=== PATIENT | female | born 1965 | race Caucasian/White ===

== ENCOUNTER 2019-03-17 20:35 | Observation (INO) | payer BC ==
[~2019-03-17] VITALS: Ht 160 cm; Wt 85.1 kg
--- NOTE | 2019-03-17 20:40 | PHYS DOC ---
Past History Past Medical History: Hypertension, Other Past Medical History Night terrors Adult General Chief Complaint Chief Complaint: ".. I was exposed to Flu... and I have to fly out to [place] for a medical conference.. so I stopped by urgent care to get some tamiflu... but my BP was in 200's/ 100's.. and every one freaked.. but I am not feeling right.. I normally have good blood pressures.. " HPI HPI Patient is a 53 year old female who presents with above hx and complaints of hypertension. Patient has not been on blood pressure meds previously. Patient does have a high stress job. Patient is normally very healthy. Travel f requently. Patient has recently had exposure to influenza. Patient does report some general malaise and fatigue. Review of Systems Review of Systems Constitutional: Denies fever or chills [] Eyes: Denies change in visual acuity, redness, or eye pain [] HENT: Denies nasal congestion or sore throat [] Respiratory: Denies cough or shortness of breath [] Cardiovascular: No additional information not addressed in HPI [] GI: Denies abdominal pain, nausea, vomiting, bloody stools or diarrhea [] : Denies dysuria or hematuria [] Musculoskeletal: Denies back pain or joint pain [] Integument: Denies rash or skin lesions [] Neurologic: Denies headache, focal weakness or sensory changes [] Endocrine: Denies polyuria or polydipsia [] All other systems were reviewed and found to be within normal limits, except as documented in this note. Family History Family History DVT or family members Current Medications Current Medications See nursing for home meds Allergies Allergies Allergic to penicillin Physical Exam Physical Exam Constitutional: Well developed, well nourished, mild distress, non-toxic appearance. [] HENT: Normocephalic, atraumatic, bilateral external ears normal, oropharynx moist, no oral exudates, nose normal. [] Eyes: PERRLA, EOMI, conjunctiva normal, no discharge. [] Neck: Normal range of motion, no tenderness, supple, no stridor. [] Cardiovascular:Heart rate regular rhythm, no murmur [] Lungs & Thorax: Bilateral breath sounds equal at apexes auscultation [] Abdomen: Bowel sounds normal, soft, no tenderness, no masses, no pulsatile masses. [] Skin: Warm, dry, no erythema, no rash. [] Back: No tenderness, no CVA tenderness. [] Extremities: No tenderness, no cyanosis, no clubbing, ROM intact, no edema. [] No cording appreciated Neurologic: Alert and oriented X 3, normal motor function, normal sensory function, no focal deficits noted. [] Psychologic: Affect anxious, judgement normal, mood normal. [] EKG EKG My interpretation EKG shows a sinus rhythm at 82 bpm. No findings acute STEMI of contralateral changes.[] Radiology/Procedures Radiology/Procedures [][address] [address] IMAGING REPORT Signed PATIENT: DILIP MATIAS ACCOUNT: [id number] : 1965 LOCATION: ER AGE: 53 SEX: F EXAM STATUS: PRE ER ORD. PHYSICIAN: HELLEN NEGRETE MD REASON: HTN, WEAKNESS, LEFT ARM NUMB. PROCEDURE: CHEST PA & LATERAL EXAM: PA and Lateral Views of the Chest DATE: 03/17/2019 8:43 PM INDICATION: COMPARISON: No Prior FINDINGS: The heart is not enlarged. Mediastinal and hilar contours are normal. No focal parenchymal airspace opacity. No pleural effusion or pneumothorax. IMPRESSION: 1. No radiographic evidence for acute cardiopulmonary process. Electronically signed by: Cy Lanza MD (03/17/2019 9:50 PM) [id number] DICTATED AND SIGNED BY: CY LANZA MD DATE: 03/17/19 2150 CC: HELLEN NEGRETE MD ~ Course & Med Decision Making Course & Med Decision Making Pertinent Labs and Imaging studies reviewed. (See chart for details) Admit to Dr. Perez with cardiology consult. Heart Score -2 to 3 Impression: 1. Accelerated Hypertension 2. Hx. Flu exposure 3. Insomnia- Night terrors 4. Anemia Hgb 11.3 5. Atypical Chest Pain [] Dragon Disclaimer Dragon Disclaimer This electronic medical record was generated, in whole or in part, using a voice recognition dictation system. Departure Departure: Disposition: HOME/RESIDENCE PRIOR TO ADM Condition: STABLE Dragon Disclaimer This chart was dictated in whole or in part using Voice Recognition software in a busy, high-work load, and often noisy Emergency Department environment. It may contain unintended and wholly unrecognized errors or omissions. HELLEN NEGRETE MD Mar 17, 2019 20:40
[2019-03-17] MEDS ORDERED: IV RINGERS SOLUTION,LACTATED 1,000 ML IV SCH (20:43)
[2019-03-17 21:33] LABS: BARBITURATES NEG (NEG); BENZODIAZEPINES POS (NEG); CANNABINOIDS NEG (NEG); COCAINE NEG (NEG); METHADONE NEG (NEG); OPIATES NEG (NEG); PHENCYCLIDINE NEG (NEG)
[2019-03-17 21:40] LABS: AMPHETAMINE/METHAMPHETAMINE NEG (NEG)
[2019-03-17 21:43] LABS: BILIRUBIN,URINE NEG (NEG); CLARITY,URINE HAZY; COLOR,URINE YELLOW; GLUCOSE,URINE NEG (NEG); NITRITE,URINE NEG (NEG); RBC,URINE RARE /HPF (0-2); UROBILINOGEN,URINE 0.2 mg/dL (0.2 mg/dL); WBC,URINE RARE /HPF (0-4)
[2019-03-17 21:44] LABS: BACTERIA,URINE FEW /HPF (0-FEW); SQUAMOUS EPITHELIAL CELL,UR OCC /LPF
--- NOTE | 2019-03-17 21:53 | RAD ---
EXAM: PA and Lateral Views of the Chest DATE: 03/17/2019 8:43 PM INDICATION: COMPARISON: No Prior FINDINGS: The heart is not enlarged. Mediastinal and hilar contours are normal. No focal parenchymal airspace opacity. No pleural effusion or pneumothorax. IMPRESSION: 1. No radiographic evidence for acute cardiopulmonary process. Electronically signed by: Cy Beck MD (03/17/2019 9:50 PM) [id number]
[2019-03-17 22:06] LABS: BASO % 1 % (0-3); EOS # 0.1 x10^3/uL (0.0-0.7); EOS % 2 % (0-3); HEMATOCRIT 36.3 % (36.0-47.0); HEMOGLOBIN 11.3 g/dL (12.0-15.5); LYMPH # 1.7 x10^3/uL (1.0-4.8); LYMPH % 28 % (24-48); MEAN CORPUSCULAR HEMOGLOBIN 24 pg (25-35); MEAN CORPUSCULAR HGB CONC 31 g/dL (31-37); MEAN CORPUSCULAR VOLUME 78 fL (79-100); MONO # 0.6 x10^3/uL (0.0-1.1); MONO % 10 % (0-9); NEUT # 3.6 x10^3uL (1.8-7.7); NEUT % 60 % (31-73); PLATELET COUNT 373 x10^3/uL (140-400); RED BLOOD COUNT 4.68 x10^6/uL (3.50-5.40); RED CELL DISTRIBUTION WIDTH 17.8 % (11.5-14.5)
[2019-03-17 22:14] LABS: CALCIUM 8.5 mg/dL (8.5-10.1); CREATININE 0.6 mg/dL (0.6-1.0); POTASSIUM 3.5 mmol/L (3.5-5.1)
[2019-03-17 22:29] LABS: ALBUMIN 3.9 g/dL (3.4-5.0); DIRECT BILIRUBIN 0.1 mg/dL (0.0-0.2); TOTAL BILIRUBIN 0.5 mg/dL (0.2-1.0); TOTAL PROTEIN 7.1 g/dL (6.4-8.2)
[2019-03-17] MEDS ORDERED: cloNIDine HCL 0.1 MG TABLET PO ONE (22:30)
[2019-03-17] MEDS ORDERED: cloNIDine TTS-1 1 PATCH PATCH TD SCH (22:30)
[2019-03-18] VITALS (11 sets, daily range): BP systolic 103–130; BP diastolic 69–90
[2019-03-18] MEDS ORDERED: ONDANSETRON PF 4 MG/2 ML VIAL. IV PRN (01:00)
[2019-03-18] MEDS ORDERED: LORazepam 1 MG TABLET PO ONE (01:30)
[2019-03-18] MEDS ORDERED: cloNIDine TTS-2 1 PATCH PATCH TD ONE (01:30)
[2019-03-18] MEDS ORDERED: OSELTAMIVIR 75 MG CAPSULE PO ONE (01:30)
[2019-03-18] MEDS ORDERED: ASPIRIN 325 MG TABLET PO ONE (01:30)
--- NOTE | 2019-03-18 03:04 | EKG ---
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
[2019-03-18 03:43] LABS: INFLUENZA A PATIENT NEGATIVE (NEGATIVE); INFLUENZA B PATIENT NEGATIVE (NEGATIVE)
[2019-03-18] MEDS ORDERED: MELO7.5T29 PO (04:48)
[2019-03-18] MEDS ORDERED: ESCITALOPRAM OXA5 MG PO (04:48)
[2019-03-18] MEDS ORDERED: ALPR0.25 PO (04:48)
[2019-03-18] MEDS ORDERED: PANT40TA5 PO (04:48)
--- NOTE | 2019-03-18 08:10 | PDOC2 ---
CAROLANN MURRELL COAT FELLER 03/18/19 0810: CARDIAC CONSULT DATE OF CONSULT Date Of Consult DATE: 03/18/19 TIME: 08:08 REASON FOR CONSULT Reason for Consult Accelerated HTN Atypical CP REFERRING PHYSICIAN Referring Physician Dr. Roblero SOURCE Source: Chart review, Patient HPI History of Present Illness This is a 53 yo female who presented secondary to elevated blood pressure. Patient was exposed to the flu recently. Is traveling to [place] this for work. Went to urgent care for prophylaxis Tamiflu. Blood pressure was significantly elevated near 200/100 and she was referred to the ED for further evaluation and treatment. She reports blood pressure is normally 120/80 at routine visits at her PCP every 3 months. Does report that parents began having heart difficulties in their 50's. Patient reports she woke up with a headache Sunday morning. Wasn't overly concerned as she had been up late and had a few drinks with the [employer] game. Later in the morning, was feeling dizzy. Also noted numbness in her left arm and leg. Dizziness persisted and started feeling flush. Thought she was coming down with the flu. Does report experiencing LE edema for the last year. Does seem to improve overnight. States she has been extremely fatigue recently. Has very demanding job and travels frequently. Often eats airport food. Has long flight of stairs at home and is very dyspneic when she goes up them. Occasionally experiences tightness in her central chest. Has family h/o CAD. Both parents with CHF and diabetes. Dad with multiple stents. PAST MEDICAL HISTORY GI: GERD Psych: Anxiety PAST SURGICAL HISTORY Past Surgical History: Tonsillectomy, Other (breast augmentation ) FAMILY HISTORY Family History: Cancer, Coronary Artery Disease (father ), Diabetes, Heart Disease SOCIAL HISTORY Smoke: No ALCOHOL: none Drugs: None Lives: with Family CURRENT MEDICATIONS Current Medications Current Medications Lactated Ringer's 1,000 ml @ 100 mls/hr Q10H IV Last administered on 03/17/19at 22:00; Start 03/17/19 at 20:43; Stop 03/18/19 at 06:42; Status DC Clonidine HCl (Catapres) 0.2 mg 1X ONCE PO Last administered on 03/17/19at 22:34; Start 03/17/19 at 22:30; Stop 03/17/19 at 22:31; Status DC Clonidine HCl (Catapres Tts-1) 1 patch WEEKLY TD Last administered on 03/17/19at 23:33; Start 03/17/19 at 22:30 Oseltamivir Phosphate (Tamiflu) 75 mg 1X ONCE PO Last administered on 03/18/19at 01:56; Start 03/18/19 at 01:30; Stop 03/18/19 at 01:31; Status DC Ondansetron HCl (Zofran) 4 mg PRN Q4HRS PRN IV NAUSEA/VOMITING; Start 03/18/19 at 01:00; Stop 03/19/19 at 00:59 Aspirin (Brooke Aspirin) 325 mg 1X ONCE PO Last administered on 03/18/19at 01:55; Start 03/18/19 at 01:30; Stop 03/18/19 at 01:31; Status DC Aspirin (Children'S Aspirin) 81 mg DAILY PO ; Start 03/18/19 at 09:00 Clonidine HCl (Catapres Tts-2) 1 patch 1X ONCE TD ; Start 03/18/19 at 01:30; Stop 03/18/19 at 01:31; Status DC Lorazepam (Ativan) 1 mg 1X ONCE PO Last administered on 03/18/19at 01:56; Start 03/18/19 at 01:30; Stop 03/18/19 at 01:31; Status DC Active Scripts Active Reported Pantoprazole Sodium 40 Mg Tablet.dr 1 Tab-Cap PO DAILY Meloxicam 7.5 Mg Tablet 1 Tab PO DAILY 30 Days Escitalopram Oxalate 5 Mg Tablet 5 Mg PO DAILY Xanax (Alprazolam) 0.25 Mg Tablet 1 Tab PO DAILY ALLERGIES Allergies: Coded Allergies: Penicillins (Verified Allergy, Mild, Nausea and Vomiting, 03/17/19) ROS Review of Systems 14 point ROS conducted with pertinent positives noted above in HPI PHYSICAL EXAM General: Alert, Oriented X3, Cooperative, No acute distress HEENT: Atraumatic, Mucous membr. moist/pink Lungs: Clear to auscultation Heart: Regular rate, Normal S1, Normal S2, No murmurs Abdomen: Soft, No tenderness Extremities: No edema, Normal pulses Skin: No breakdown Neuro: Normal speech, Sensation intact Psych/Mental Status: Mental status NL, Other (anxious ) MUSCULOSKELETAL: No joint tenderness VITALS Vital Signs Vital Signs Date Time Temp Pulse Resp B/P (MAP) Pulse Ox O2 Delivery O2 Flow Rate FiO2 03/18/19 06:05 97.3 93 20 113/75 (88) 97 Room Air LABS LABS Laboratory Tests Test 03/17/19 20:40 03/17/19 21:25 03/18/19 02:40 Urine Collection Type Unknown Urine Color Yellow Urine Clarity Hazy Urine pH 6.5 Urine Specific Floyd >=1.030 Urine Protein Neg (NEG-TRACE) Urine Glucose (UA) Neg mg/dL (NEG) Urine Ketones (Stick) 15 mg/dL (NEG) Urine Blood Neg (NEG) Urine Nitrite Neg (NEG) Urine Bilirubin Neg (NEG) Urine Urobilinogen Dipstick 0.2 mg/dL (0.2 mg/dL) Urine Leukocyte Esterase Neg (NEG) Urine RBC Rare /HPF (0-2) Urine WBC Rare /HPF (0-4) Urine Squamous Epithelial Cells Occ /LPF Urine Bacteria Few /HPF (0-FEW) Urine Opiates Screen Neg (NEG) Urine Methadone Screen Neg (NEG) Urine Barbiturates Neg (NEG) Urine Phencyclidine Screen Neg (NEG) Urine Amphetamine/Methamphetamine Neg (NEG) Urine Benzodiazepines Screen Pos (NEG) Urine Cocaine Screen Neg (NEG) Urine Cannabinoids Screen Neg (NEG) Urine Ethyl Alcohol Neg (NEG) White Blood Count 6.0 x10^3/uL (4.0-11.0) Red Blood Count 4.68 x10^6/uL (3.50-5.40) Hemoglobin 11.3 g/dL (12.0-15.5) Hematocrit 36.3 % (36.0-47.0) Mean Corpuscular Volume 78 fL (79-100) Mean Corpuscular Hemoglobin 24 pg (25-35) Mean Corpuscular Hemoglobin Concent 31 g/dL (31-37) Red Cell Distribution Width 17.8 % (11.5-14.5) Platelet Count 373 x10^3/uL (140-400) Neutrophils (%) (Auto) 60 % (31-73) Lymphocytes (%) (Auto) 28 % (24-48) Monocytes (%) (Auto) 10 % (0-9) Eosinophils (%) (Auto) 2 % (0-3) Basophils (%) (Auto) 1 % (0-3) Neutrophils # (Auto) 3.6 x10^3uL (1.8-7.7) Lymphocytes # (Auto) 1.7 x10^3/uL (1.0-4.8) Monocytes # (Auto) 0.6 x10^3/uL (0.0-1.1) Eosinophils # (Auto) 0.1 x10^3/uL (0.0-0.7) Basophils # (Auto) 0.0 x10^3/uL (0.0-0.2) Prothrombin Time 10.6 SEC (9.4-11.4) Prothromb Time International Ratio 1.0 (0.9-1.1) Activated Partial Thromboplast Time 24 SEC (23-33) D-Dimer (Crystal) 0.46 mg/L (0.00-0.50) Sodium Level 142 mmol/L (136-145) Potassium Level 3.5 mmol/L (3.5-5.1) Chloride Level 105 mmol/L (98-107) Carbon Dioxide Level 26 mmol/L (21-32) Anion Gap 11 (6-14) Blood Urea Nitrogen 16 mg/dL (7-20) Creatinine 0.6 mg/dL (0.6-1.0) Estimated GFR (Cockcroft-Gault) 105.0 Glucose Level 90 mg/dL (70-99) Calcium Level 8.5 mg/dL (8.5-10.1) Magnesium Level 2.0 mg/dL (1.8-2.4) Total Bilirubin 0.5 mg/dL (0.2-1.0) Direct Bilirubin 0.1 mg/dL (0.0-0.2) Aspartate Amino Transf (AST/SGOT) 17 U/L (15-37) Alanine Aminotransferase (ALT/SGPT) 23 U/L (14-59) Alkaline Phosphatase 77 U/L (46-116) Creatine Kinase 72 U/L (26-192) Troponin I Quantitative < 0.017 ng/mL (0-0.055) MK-Pne-F-Type Natriuretic Peptide 152 pg/mL (0-124) Total Protein 7.1 g/dL (6.4-8.2) Albumin 3.9 g/dL (3.4-5.0) Lipase 112 U/L (73-393) Influenza Type A (Rapid) Negative (NEGATIVE) Influenza Type B (Rapid) Negative (NEGATIVE) ASSESSMENT/PLAN Assessment/Plan 1. Accelerated HTN; now well controlled on clonidine 2. LE edema 3. Chest tightness, intermittent. Has been CP free since admission. Trop negative. EKG without significant acute changes 4. Anxiety Recommendations D/c IVFs Will give dose of Lasix D/c clonidine Start low-dose lisinopril Outpatient BP monitoring Lipids, TSH Encouraged low Na diet Given LE edema, chest tightness, [place], and family h/o CAD/CHF, will obtain echo t o assess LV systolic function. Discussed obtaining this on an outpatient basis, but patient would prefer to do this now while she is here as she travels with work frequently. Consider outpatient ischemic evaluation given risk factors. LOLITA SPARROW MD 03/18/192046: CARDIAC CONSULT ASSESSMENT/PLAN Assessment/Plan Patient seen and examined. Agree with ROD PULLER's assessment and plan. CP with mixed features UT ruled out Agree with 2D echo to rule out WMA and plan further ischemic eval as outpatient BP better controlled Agree with lasix for possible mild ac on chr diast HF Thank you for your consultation CAROLANN MURRELL APRN Mar 18, 2019 08:10 LOLITA SPARROW MD Mar 18, 2019 20:47
[2019-03-18] MEDS ORDERED: FUROSEMIDE 40 MG TABLET PO ONE (09:20)
[2019-03-18] MEDS ORDERED: POTASSIUM CHLORIDE 20 MEQ TABLET.ER. PO ONE (09:20)
[2019-03-18] MEDS: ASPIRIN 81 MG TAB.CHEW PO SCH (09:22)
[2019-03-18] MEDS: POLYETHYLENE GLYCOL 3350 17 GM PACKET. PO SCH (12:24)
[2019-03-18] MEDS: LISINOPRIL 5 MG TABLET. PO SCH (13:32)
[2019-03-18 17:21] LABS: THYROID STIM HORMONE (TSH) 1.332 uIU/mL (0.358-3.740)
--- NOTE | 2019-03-18 19:25 | HP ---
ADMIT DATE: 03/18/2019 HISTORY OF PRESENT ILLNESS: The patient is a 53-year-old female patient who came to the Emergency Room complaining that her blood pressure is extremely high. She has not been on any blood pressure medication before. The patient does have high stress job. The patient is normally very healthy. She travels frequently. The patient has recently had exposure to influenza. Does report some generalized malaise and fatigue. She reports that her blood pressure is normally in the 120/80 at routine visits at her primary care physician every 3 months. She is concerned that her parents began having heart difficulties in their 50s. She apparently woke up with headache; but however, she was not concerned that she had been up late and had a few drinks with [employer] later in the morning, was feeling dizzy, also had numbness in left arm and leg, dizziness persisted and started feeling flushed, thought she has come down with the flu, does report experiencing left lower extremity edema for the last year, does seem to improve overnight. She has been extremely fatigued recently and has very demanding job and travels frequently, often eats airport food, has long flight of stairs at home and is very dyspneic when she goes up them, occasionally experiences tightness in her central chest, has a family history of coronary artery disease. Both parents with congestive heart failure and diabetes; there had been multiple stents. She was extensively investigated in the Emergency Room and has had lab work, which showed that her first set of troponin was less than 0.017. She was admitted to do 2 more sets of cardiac enzyme to consult the Cardiology team. PAST MEDICAL HISTORY: Significant for recently diagnosed hypertension. PAST SURGICAL HISTORY: Significant for breast implants. ALLERGIES: SHE IS ALLERGIC TO PENICILLIN. MEDICATIONS: She is on meloxicam 7.5 mg at bedtime, escitalopram oxalate 5 mg daily, alprazolam 0.25 mg daily, Protonix 40 mg daily. FAMILY HISTORY: She has 4 sisters, 1 older, 3 younger and all healthy. Her father is alive at age of 75, has DVT. He has a PCI and stent deployment in his 50s. Her mother is alive at the age of 73. She has myocardial infarction. She has also stent in her heart. SOCIAL HISTORY: She is , has 2 sons. She does not smoke, drink alcohol or use any recreational drugs. 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 REVIEW OF SYSTEMS: As per history of present illness. PHYSICAL EXAMINATION: GENERAL: On arrival to the Emergency Room, she looked well and was clearly in no apparent respiratory distress. No pallor, jaundice, cyanosis or thyromegaly. No jugular venous distention or limb edema. VITAL SIGNS: Her heart rate was 99, blood pressure was 177/106, temperature was 98.2, respiratory rate was 20, and her oxygen saturation was 98%. HEAD, EYES, EARS, NOSE AND THROAT: Showed normocephalic, atraumatic. NECK: Supple. HEART: Showed normal first and second heart sounds. No gallop or murmur. CHEST: Clear to auscultation. No crepitation or rhonchi. ABDOMEN: Distended, soft, nontender. NEUROLOGIC: She was awake, alert, responding appropriately. All cranial nerves intact. EXTREMITIES: She moves extremities without difficulty. Her EKG showed that she was in sinus rhythm at a rate of 82 per minute with no finding of acute ST segment elevation myocardial infarction. Her chest x-ray showed the heart is not enlarged. Mediastinal and hilar contours are normal. No focal parenchymal airspace opacity. No pleural effusion or pneumothorax. LABORATORY DATA: Her lab work in the Emergency Room showed a white cell count of 6000, hemoglobin 11.3, hematocrit 36, MCV 78 and platelet count of 373,000. Her serum sodium was 142, potassium 3.5, chloride 105, bicarbonate 26, anion gap of 11, BUN 16, creatinine 0.6, estimated GFR was 105 mL per minute. Her glucose was 90, calcium was 8.5, magnesium 2. Total bilirubin, AST, ALT, alkaline phosphatase were normal. Total protein was 7.1, albumin was 3.9. Lipase was 112. TSH was normal at 1.332. Her first set of troponin was less than 0.017 and she has had her fasting lipid profile, which showed serum triglycerides of 53, total cholesterol 219, LDL was 140, VLDL was 10, HDL cholesterol was 69, the ratio was 3. Her prothrombin time, INR and aPTT as well as D-dimer are all normal. Urinalysis essentially unremarkable and toxic screen was positive for benzodiazepine. ASSESSMENT AND PLAN: The patient was admitted to do 2 sets of cardiac enzyme and to consult the Cardiology. She apparently was treated with clonidine patch because of extreme high blood pressure. She was also treated with Lasix and lorazepam and her blood pressure continued to be elevated initially; however, subsequently, her blood pressure came down. In fact, when I saw her this morning, her blood pressure was 109/74, temperature was 98.6, respiratory rate 20, and oxygen saturation was 98%. Her clonidine patch was discontinued and she is now on lisinopril 5 mg once a day. The plan is obviously she was seen by the pulp screen operator and that she has 2 sets of cardiac enzymes that ruled out myocardial infarction. However, the Cardiology team recommended an echocardiogram to evaluate her left ventricular systolic function. Unfortunately, that could not be accomplished tonight and therefore, the patient will stay overnight and we will decide on further management according to the finding of the echocardiogram. DONY PATEL MD DR: MANDO/daija JOB#: [id number] / [id number]
[2019-03-18] MEDS ORDERED: CITALOPRAM 10 MG TABLET. PO SCH (21:00)
[2019-03-18] MEDS ORDERED: MELOXICAM 7.5 MG TABLET PO SCH (21:00)
[2019-03-18] MEDS ORDERED: ALPRAZolam 0.25 MG TABLET PO SCH (21:00)
[2019-03-19 05:51] VITALS: BP 104/69
[2019-03-19 06:45] LABS: BASO % 1 % (0-3); EOS # 0.2 x10^3/uL (0.0-0.7); EOS % 4 % (0-3); HEMATOCRIT 34.3 % (36.0-47.0); HEMOGLOBIN 10.6 g/dL (12.0-15.5); LYMPH # 1.6 x10^3/uL (1.0-4.8); LYMPH % 33 % (24-48); MEAN CORPUSCULAR HEMOGLOBIN 24 pg (25-35); MEAN CORPUSCULAR HGB CONC 31 g/dL (31-37); MEAN CORPUSCULAR VOLUME 78 fL (79-100); MONO # 0.5 x10^3/uL (0.0-1.1); MONO % 11 % (0-9); NEUT # 2.6 x10^3uL (1.8-7.7); NEUT % 52 % (31-73); PLATELET COUNT 324 x10^3/uL (140-400); WHITE BLOOD COUNT 4.9 x10^3/uL (4.0-11.0)
[2019-03-19 06:48] LABS: CALCIUM 8.3 mg/dL (8.5-10.1); CREATININE 0.6 mg/dL (0.6-1.0); POTASSIUM 4.1 mmol/L (3.5-5.1)
[2019-03-19] MEDS ORDERED: PANTOPRAZOLE 40 MG TABLET. PO SCH (07:30)
--- NOTE | 2019-03-19 08:10 | PDOC ---
CARDIO Progress Notes Date & Time Date of Service DATE: 03/19/19 TIME: 08:06 Time of Evaluation 08:06 Subjective Notes Still feels puffy in hands and legs. Feels like she is swollen. Oral Lasix did not do much No chest pain, dizziness Vitals Vitals Vital Signs Date Time Temp Pulse Resp B/P (MAP) Pulse Ox O2 Delivery O2 Flow Rate FiO2 03/19/19 05:51 97.6 74 18 104/69 (81) 95 Room Air Weight Weight [ ] Input and Output I.O. Intake and Output 03/19/19 07:00 Intake Total 1020 ml Balance 1020 ml Intake Oral 1020 ml # Voids 6 Laboratory Labs Laboratory Tests Test 03/17/19 20:40 03/17/19 21:25 03/18/19 02:40 03/18/19 09:18 Urine Collection Type Unknown Urine Color Yellow Urine Clarity Hazy Urine pH 6.5 Urine Specific [place] >=1.030 Urine Protein Neg (NEG-TRACE) Urine Glucose (UA) Neg mg/dL (NEG) Urine Ketones (Stick) 15 mg/dL (NEG) Urine Blood Neg (NEG) Urine Nitrite Neg (NEG) Urine Bilirubin Neg (NEG) Urine Urobilinogen Dipstick 0.2 mg/dL (0.2 mg/dL) Urine Leukocyte Esterase Neg (NEG) Urine RBC Rare /HPF (0-2) Urine WBC Rare /HPF (0-4) Urine Squamous Epithelial Cells Occ /LPF Urine Bacteria Few /HPF (0-FEW) Urine Opiates Screen Neg (NEG) Urine Methadone Screen Neg (NEG) Urine Barbiturates Neg (NEG) Urine Phencyclidine Screen Neg (NEG) Urine Amphetamine/Methamphetamine Neg (NEG) Urine Benzodiazepines Screen Pos (NEG) Urine Cocaine Screen Neg (NEG) Urine Cannabinoids Screen Neg (NEG) Urine Ethyl Alcohol Neg (NEG) White Blood Count 6.0 x10^3/uL (4.0-11.0) Red Blood Count 4.68 x10^6/uL (3.50-5.40) Hemoglobin 11.3 g/dL (12.0-15.5) Hematocrit 36.3 % (36.0-47.0) Mean Corpuscular Volume 78 fL (79-100) Mean Corpuscular Hemoglobin 24 pg (25-35) Mean Corpuscular Hemoglobin Concent 31 g/dL (31-37) Red Cell Distribution Width 17.8 % (11.5-14.5) Platelet Count 373 x10^3/uL (140-400) Neutrophils (%) (Auto) 60 % (31-73) Lymphocytes (%) (Auto) 28 % (24-48) Monocytes (%) (Auto) 10 % (0-9) Eosinophils (%) (Auto) 2 % (0-3) Basophils (%) (Auto) 1 % (0-3) Neutrophils # (Auto) 3.6 x10^3uL (1.8-7.7) Lymphocytes # (Auto) 1.7 x10^3/uL (1.0-4.8) Monocytes # (Auto) 0.6 x10^3/uL (0.0-1.1) Eosinophils # (Auto) 0.1 x10^3/uL (0.0-0.7) Basophils # (Auto) 0.0 x10^3/uL (0.0-0.2) Prothrombin Time 10.6 SEC (9.4-11.4) Prothromb Time International Ratio 1.0 (0.9-1.1) Activated Partial Thromboplast Time 24 SEC (23-33) D-Dimer (Crystal) 0.46 mg/L (0.00-0.50) Sodium Level 142 mmol/L (136-145) Potassium Level 3.5 mmol/L (3.5-5.1) Chloride Level 105 mmol/L (98-107) Carbon Dioxide Level 26 mmol/L (21-32) Anion Gap 11 (6-14) Blood Urea Nitrogen 16 mg/dL (7-20) Creatinine 0.6 mg/dL (0.6-1.0) Estimated GFR (Cockcroft-Gault) 105.0 Glucose Level 90 mg/dL (70-99) Calcium Level 8.5 mg/dL (8.5-10.1) Magnesium Level 2.0 mg/dL (1.8-2.4) Total Bilirubin 0.5 mg/dL (0.2-1.0) Direct Bilirubin 0.1 mg/dL (0.0-0.2) Aspartate Amino Transf (AST/SGOT) 17 U/L (15-37) Alanine Aminotransferase (ALT/SGPT) 23 U/L (14-59) Alkaline Phosphatase 77 U/L (46-116) Creatine Kinase 72 U/L (26-192) Troponin I Quantitative < 0.017 ng/mL (0-0.055) < 0.017 ng/mL (0-0.055) FU-Jfb-Z-Type Natriuretic Peptide 152 pg/mL (0-124) Total Protein 7.1 g/dL (6.4-8.2) Albumin 3.9 g/dL (3.4-5.0) Triglycerides Level 53 mg/dL (0-150) Cholesterol Level 219 mg/dL (0-200) LDL Cholesterol, Calculated 140 mg/dL (0-100) VLDL Cholesterol, Calculated 10 mg/dL (0-40) Non-HDL Cholesterol Calculated 150 mg/dL (0-129) HDL Cholesterol 69 mg/dL (40-60) Cholesterol/HDL Ratio 3.0 Lipase 112 U/L (73-393) Thyroid Stimulating Hormone (TSH) 1.332 uIU/mL (0.358-3.740) Influenza Type A (Rapid) Negative (NEGATIVE) Influenza Type B (Rapid) Negative (NEGATIVE) Test 03/19/19 06:20 White Blood Count 4.9 x10^3/uL (4.0-11.0) Red Blood Count 4.40 x10^6/uL (3.50-5.40) Hemoglobin 10.6 g/dL (12.0-15.5) Hematocrit 34.3 % (36.0-47.0) Mean Corpuscular Volume 78 fL (79-100) Mean Corpuscular Hemoglobin 24 pg (25-35) Mean Corpuscular Hemoglobin Concent 31 g/dL (31-37) Red Cell Distribution Width 18.0 % (11.5-14.5) Platelet Count 324 x10^3/uL (140-400) Neutrophils (%) (Auto) 52 % (31-73) Lymphocytes (%) (Auto) 33 % (24-48) Monocytes (%) (Auto) 11 % (0-9) Eosinophils (%) (Auto) 4 % (0-3) Basophils (%) (Auto) 1 % (0-3) Neutrophils # (Auto) 2.6 x10^3uL (1.8-7.7) Lymphocytes # (Auto) 1.6 x10^3/uL (1.0-4.8) Monocytes # (Auto) 0.5 x10^3/uL (0.0-1.1) Eosinophils # (Auto) 0.2 x10^3/uL (0.0-0.7) Basophils # (Auto) 0.0 x10^3/uL (0.0-0.2) Sodium Level 143 mmol/L (136-145) Potassium Level 4.1 mmol/L (3.5-5.1) Chloride Level 108 mmol/L (98-107) Carbon Dioxide Level 27 mmol/L (21-32) Anion Gap 8 (6-14) Blood Urea Nitrogen 17 mg/dL (7-20) Creatinine 0.6 mg/dL (0.6-1.0) Estimated GFR (Cockcroft-Gault) 105.0 Glucose Level 95 mg/dL (70-99) Calcium Level 8.3 mg/dL (8.5-10.1) Physical Exams HEENT: Neck Supple W Full Motion Chest: Symmetric Lungs: Clear to Auscultation Heart: S1S2, RRR Extremities: Other (trace bilateral LE and hand edema ) Neurology: alert, oriented, follow commands Assessment Assessment 1. Accelerated HTN; now well controlled 2. LE edema, mild acute on chronic diastolic HF. Still complains of persistent edema in hands and legs. Does not feel like oral Lasix did much 3. Chest pain, tightness, mixed features. Trop negative. EKG without significant acute changes 4. Anxiety Recommendations Continue Lisinopril Will give dose of IV Lasix x1 Outpatient BP monitoring Encouraged low Na diet Echo today and plan for discharge later Outpatient MPI arranged, given risk factors. F/u in our office with Dr. Ramírez as scheduled CAROLANN MURRELL APRN Mar 19, 2019 08:10
[2019-03-19] MEDS: ASPIRIN 81 MG TAB.CHEW PO SCH (08:25)
[2019-03-19] MEDS: LISINOPRIL 5 MG TABLET. PO SCH (08:25)
[2019-03-19] MEDS: POLYETHYLENE GLYCOL 3350 17 GM PACKET. PO SCH (08:25)
[2019-03-19] MEDS ORDERED: ACETAMINOPHEN 325 MG TABLET PO PRN (09:30)
[2019-03-19] MEDS ORDERED: POTASSIUM CHLORIDE 20 MEQ TABLET.ER. PO ONE (09:45)
[2019-03-19] MEDS ORDERED: FUROSEMIDE 40 MG/4 ML VIAL IVP ONE (09:45)
[2019-03-19 10:57] VITALS: BP 107/69
--- NOTE | 2019-03-19 14:16 | CARD ---
MR#: [id number] Date of Study: 03/19/2019 Ordering Physician: CAROLANN MURRELL, Referring Physician: CAROLANN MURRELL, Tech: Ingrid Alarcon APPROVED REPORT EXAM: Two-dimensional and M-mode echocardiogram with Doppler and color Doppler. Other Information Quality : AverageHR: 65bpm INDICATION Chest Pain RISK FACTORS Hypertension 2D DIMENSIONS RVDd2.6 (2.9-3.5cm)Left Atrium(2D)3.1 (1.6-4.0cm) IVSd1.3 (0.7-1.1cm)Aortic Root(2D)3.1 (2.0-3.7cm) LVDd4.4 (3.9-5.9cm)LVOT Diameter2.0 (1.8-2.4cm) PWd0.9 (0.7-1.1cm)LVDs2.9 (2.5-4.0cm) FS (%) 33.9 %SV55.7 ml LVEF(%)63.0 (>50%) Aortic Valve AoV Peak Jose.108.5cm/sAoV VTI21.7cm AO Peak GR.4.7mmHgLVOT Peak Jose.82.5cm/s LVOT VTI 19.22cmAO Mean GR.3mmHg JAIMEE (VMAX)2.49gk1WFD (VTI)2.74cm2 Mitral Valve MV E Jrwwqffe97.0cm/sMV DECEL BHIH418wj MV A Ckzhocut48.8cm/sE/A Ratio1.1 Pulmonary Valve PV Peak Zgmpsrkn80.0cm/sPV Peak Grad.2mmHg Tricuspid Valve TR P. Eumdanfo693ol/sRAP RUBRNEBR7nbRu TR Peak Gr.09hfXgCNLF39vkLw Pulmonary Vein S1 Gplkufwp99.2cm/sD2 Oujbomqt39.8cm/s LEFT VENTRICLE The left ventricle is normal size. There is normal left ventricular wall thickness. The left ventricu lar systolic function is normal. The Ejection Fraction is 55-60%. There is normal LV segmental wall m otion. RIGHT VENTRICLE The right ventricle is normal size. There is normal right ventricular wall thickness. The right ventr icular systolic function is normal. ATRIA The left atrium size is normal. The right atrium size is normal. The interatrial septum is intact wit h no evidence for an atrial septal defect or patent foramen ovale as noted on 2-D or Doppler imaging. AORTIC VALVE The aortic valve is normal in structure and function. Doppler and Color Flow revealed no significant aortic regurgitation. There is no significant aortic valvular stenosis. MITRAL VALVE The mitral valve is thickened but opens well. There is no evidence of mitral valve prolapse. There is no mitral valve stenosis. Doppler and Color Flow revealed no mitral valve regurgitation noted. TRICUSPID VALVE The tricuspid valve is normal in structure and function. Doppler and Color Flow revealed trace tricus pid regurgitation with an estimated PAP of 20 mmHg. There is no tricuspid valve stenosis. PULMONIC VALVE The pulmonary valve is normal in structure and function. Doppler and Color Flow revealed trace to mil d pulmonic valvular regurgitation. GREAT VESSELS The aortic root is normal in size. The ascending aorta is normal in size. The IVC is normal in size a nd collapses >50% with inspiration. PERICARDIAL EFFUSION There is no evidence of significant pericardial effusion. Critical Notification Critical Value: No <Conclusion> The left ventricular systolic function is normal. The Ejection Fraction is 55-60%. There is normal LV segmental wall motion. Trace tricuspid regurgitation with an estimated PAP of 20 mmHg. There is no evidence of significant pericardial effusion. Signed by : Levi Ramírez, Electronically Approved : 03/19/2019 14:15:41
[2019-03-19] MEDS ORDERED: FURO-68 PO (15:20)
[2019-03-19] MEDS ORDERED: ATOR20TA PO (15:20)
[2019-03-19] MEDS ORDERED: LISI-338 PO (15:20)
[2019-03-19] MEDS ORDERED: ATORVASTATIN CALCIUM 20 MG TABLET PO SCH (21:00)
== END 2019-03-19 15:49 | disposition home or self-care (01) ==
LOC: ER 20:35 → INTOOBSV 03-18 00:30 → 1 SOUTH 03-18 00:30
PROVIDERS: ADMIT Internal Medicine; ATTEND Internal Medicine
DX: I11.0 Hypertensive heart disease with heart failure (principal); I50.33 Acute on chronic diastolic (congestive) heart failure; R07.89 Other chest pain; K21.9 Gastro-esophageal reflux disease without esophagitis; F41.9 Anxiety disorder, unspecified; R60.9 Edema, unspecified; R60.0 Localized edema; G47.00 Insomnia, unspecified; F51.4 Sleep terrors [night terrors]; D64.9 Anemia, unspecified; R42 Dizziness and giddiness; Z79.82 Long term (current) use of aspirin; Z79.899 Other long term (current) drug therapy; Z98.82 Breast implant status; Z20.828 Contact with and (suspected) exposure to other viral communicable diseases
CPT/HCPCS: 36415; 71046; 80048; 80061; 80076; 80307; 81001; 82550; 83690; 83735; 83880; 84443; 84484; 85025; 85379; 85610; 85730; 87804; 93005; 93306; 96361; 96374; 99284; G0378; J1940; J7120; 96360; G0379; 99285-25

== ENCOUNTER 2019-04-21 12:28 | Emergency (ER) | payer BC ==
[~2019-04-21] VITALS: Ht 160 cm; Wt 83.4 kg
[~2019-04-21 12:28] MED LIST: ALPR0.25 PO; ATOR20TA PO; ESCITALOPRAM OXA5 MG PO; FURO-68 PO; LISI-338 PO; MELO7.5T29 PO; PANT40TA5 PO
[2019-04-21] MEDS ORDERED: IV NORMAL SALINE 1,000ML 1,000 ML IV ONE (13:00)
[2019-04-21 13:17] LABS: BASO # 0.1 x10^3/uL (0.0-0.2); BASO % 1 % (0-3); EOS # 0.2 x10^3/uL (0.0-0.7); EOS % 2 % (0-3); HEMATOCRIT 28.9 % (36.0-47.0); HEMOGLOBIN 9.4 g/dL (12.0-15.5); LYMPH # 1.2 x10^3/uL (1.0-4.8); LYMPH % 19 % (24-48); MEAN CORPUSCULAR HEMOGLOBIN 26 pg (25-35); MEAN CORPUSCULAR HGB CONC 32 g/dL (31-37); MEAN CORPUSCULAR VOLUME 80 fL (79-100); MONO # 0.6 x10^3/uL (0.0-1.1); MONO % 9 % (0-9); NEUT # 4.6 x10^3uL (1.8-7.7); NEUT % 69 % (31-73); PLATELET COUNT 421 x10^3/uL (140-400); RED BLOOD COUNT 3.61 x10^6/uL (3.50-5.40); WHITE BLOOD COUNT 6.6 x10^3/uL (4.0-11.0)
[2019-04-21 13:28] LABS: CALCIUM 8.5 mg/dL (8.5-10.1); CREATININE 0.9 mg/dL (0.6-1.0); GFR 65.8; POTASSIUM 4.2 mmol/L (3.5-5.1)
[2019-04-21 13:33] LABS: ALBUMIN 3.7 g/dL (3.4-5.0); ALBUMIN/GLOBULIN RATIO 1.3 (1.0-1.7); TOTAL BILIRUBIN 0.3 mg/dL (0.2-1.0); TOTAL PROTEIN 6.5 g/dL (6.4-8.2)
--- NOTE | 2019-04-21 13:49 | PHYS DOC ---
Past History Past Medical History: COPD, Hypertension, Other Additional Past Medical Histor: PE Past Surgical History: Tonsillectomy, Other Additional Past Surgical Histo: Breasts Alcohol Use: Occasionally Adult General Chief Complaint Chief Complaint: VAGINAL BLEEDING HPI HPI 53-year-old female presents with vaginal bleeding. The patient has had a lot of medical issues in the last month. She started with shortness of breath and decreased exercise tolerance. She was found to be in CHF with fluid overload. She was placed on blood pressure medicine and Lasix. On a work trip, she passed out on an airplane and was admitted to a hospital in [place]. They found that she had a pulmonary embolus and placed her on several toe. For the last 10 days, the patient has had vaginal bleeding. For she thought was her normal menses and she is still very regular. She is having heavy bleeding of one super Maxi per hour and some clots. She has not had this before. She has had worsening dizziness and shortness of breath yesterday and today. She denies fever or chills. Review of Systems Review of Systems Constitutional: Fatigue. Denies fever or chills [] Eyes: Denies change in visual acuity, redness, or eye pain [] HENT: Denies nasal congestion or sore throat [] Respiratory: shortness of breath [] Cardiovascular: No additional information not addressed in HPI [] GI: Denies abdominal pain, nausea, vomiting, bloody stools or diarrhea [] : Vaginal bleeding [] Musculoskeletal: Denies back pain or joint pain [] Integument: Denies rash or skin lesions [] Neurologic: Dizziness. Denies headache, focal weakness or sensory changes [] Endocrine: Denies polyuria or polydipsia [] All other systems were reviewed and found to be within normal limits, except as documented in this note. Current Medications Current Medications Current Medications Medications (Trade) Dose Ordered Sig/Radhames Start Time Stop Time Status Last Admin Dose Admin Sodium Chloride 1,000 ml @ 1,000 mls/hr 1X ONCE 04/21/19 13:00 04/21/19 13:59 04/21/19 13:00 1,000 MLS/HR Allergies Allergies Allergies Coded Allergies Type Severity Reaction Last Updated Verified Penicillins Allergy Mild Nausea and Vomiting 03/17/19 Yes Physical Exam Physical Exam Constitutional: Well developed, obese, well nourished, no acute distress, non- toxic appearance. [] HENT: Normocephalic, atraumatic, bilateral external ears normal, oropharynx moist, no oral exudates, nose normal. [] Eyes: PERRLA, EOMI, conjunctiva normal, no discharge. [] Neck: Normal range of motion, no tenderness, supple, no stridor. [] Cardiovascular:Heart rate regular rhythm, no murmur [] Lungs & Thorax: Bilateral breath sounds clear to auscultation [] Abdomen: Bowel sounds normal, soft, no tenderness, no masses, no pulsatile masses. [] Skin: Warm, dry, no erythema, no rash. [] Back: No tenderness, no CVA tenderness. [] Extremities: No tenderness, no cyanosis, no clubbing, ROM intact, no edema. [] Neurologic: Alert and oriented X 3, normal motor function, normal sensory function, no focal deficits noted. [] Psychologic: Affect normal, judgement normal, mood normal. [] Current Patient Data Vital Signs Vital Signs Date Time Temp Pulse Resp B/P (MAP) Pulse Ox O2 Delivery O2 Flow Rate FiO2 04/21/19 12:49 98.2 93 16 122/78 (93) 99 Room Air Lab Results Laboratory Tests Test 04/21/19 13:05 White Blood Count 6.6 x10^3/uL (4.0-11.0) Red Blood Count 3.61 x10^6/uL (3.50-5.40) Hemoglobin 9.4 g/dL (12.0-15.5) L Hematocrit 28.9 % (36.0-47.0) L Mean Corpuscular Volume 80 fL (79-100) Mean Corpuscular Hemoglobin 26 pg (25-35) Mean Corpuscular Hemoglobin Concent 32 g/dL (31-37) Red Cell Distribution Width 18.0 % (11.5-14.5) H Platelet Count 421 x10^3/uL (140-400) H Neutrophils (%) (Auto) 69 % (31-73) Lymphocytes (%) (Auto) 19 % (24-48) L Monocytes (%) (Auto) 9 % (0-9) Eosinophils (%) (Auto) 2 % (0-3) Basophils (%) (Auto) 1 % (0-3) Neutrophils # (Auto) 4.6 x10^3uL (1.8-7.7) Lymphocytes # (Auto) 1.2 x10^3/uL (1.0-4.8) Monocytes # (Auto) 0.6 x10^3/uL (0.0-1.1) Eosinophils # (Auto) 0.2 x10^3/uL (0.0-0.7) Basophils # (Auto) 0.1 x10^3/uL (0.0-0.2) Sodium Level 141 mmol/L (136-145) Potassium Level 4.2 mmol/L (3.5-5.1) Chloride Level 105 mmol/L (98-107) Carbon Dioxide Level 28 mmol/L (21-32) Anion Gap 8 (6-14) Blood Urea Nitrogen 8 mg/dL (7-20) Creatinine 0.9 mg/dL (0.6-1.0) Estimated GFR (Cockcroft-Gault) 65.8 BUN/Creatinine Ratio 9 (6-20) Glucose Level 80 mg/dL (70-99) Calcium Level 8.5 mg/dL (8.5-10.1) Total Bilirubin 0.3 mg/dL (0.2-1.0) Aspartate Amino Transferase (AST) 13 U/L (15-37) L Alanine Aminotransferase (ALT) 16 U/L (14-59) Alkaline Phosphatase 66 U/L (46-116) Total Protein 6.5 g/dL (6.4-8.2) Albumin 3.7 g/dL (3.4-5.0) Albumin/Globulin Ratio 1.3 (1.0-1.7) EKG EKG Sinus rhythm, rate 69, normal axis, no ST elevations or depressions.[] Radiology/Procedures Radiology/Procedures [] Impressions: CHEST PA LATERAL History: Shortness of breath Comparison: 03/17/2019 2V chest x-ray exam. Findings: Frontal and lateral views of the chest were obtained. The cardiomediastinal silhouette is normal. Pulmonary vasculature is normal. The lungs are clear. No pleural effusion or pneumothorax is seen. There is no acute bone abnormality. IMPRESSION: No acute cardiopulmonary process. Electronically signed by: Jan Lee MD (04/21/2019 3:11 PM) [id number] DICTATED AND SIGNED BY: JAN LEE MD DATE: 04/21/19 1511 CC: LORENZA YEBOAH DO; MARTÍNEZ HAYDEN ~ CT ABD PELV W/ IV CONTRST ONLY Indication: Vaginal bleeding. Exposure: One or more of the following individualized dose reduction techniques were utilized for this examination: 1. Automated exposure control 2. Adjustment of the mA and/or kV according to patient size 3. Use of iterative reconstruction technique. Technique: Intravenous contrast was given. No oral contrast per request. Comparison: None FINDINGS: Partially visualized breast implants. Lung bases are clear. Liver demonstrates a hypodense lesion measuring 17 mm in diameter and 5 Hounsfield units, most likely a cyst. Spleen is unremarkable. Pancreas is unremarkable. No evidence of adrenal mass. Scanning was performed during excretory phase. Contrast in both renal collecting systems. Tiny hypodense lesion of the left kidney, too small to characterize, may just represent a cyst. No dominant renal mass is seen. No hydronephrosis. No calcified gallstone. Aorta is nonaneurysmal. No evidence of pathologic lymph node enlargement. Postsurgical changes at the stomach. No evidence of acute colitis. No significant small bowel distention. The appendix appears unremarkable. No significant ascites. No evidence of pneumoperitoneum. Urinary bladder appears unremarkable. No evidence of pelvic mass. Endometrium measures 10 mm thickness. Vertebral body height and alignment are intact. Transitional anatomy at the lumbosacral junction. No aggressive bone destruction. IMPRESSION: 1. No acute findings in the abdomen or pelvis. 2. Small low-density liver lesion, most likely a cyst. Electronically signed by: Arnold Muñoz MD (04/21/2019 2:52 PM) [id number] DICTATED AND SIGNED BY: ARNOLD MUÑOZ MD DATE: 04/21/19 1452 CC: LORENZA YEBOAH DO; MARTÍNEZ HAYDEN ~ Course & Med Decision Making Course & Med Decision Making Pertinent Labs and Imaging studies reviewed. (See chart for details) The patient does have a hemoglobin of 9.4, but her chart shows that she was 11.6 and 10.3 a month ago. Chest x-rays unremarkable. Her EKG is unremarkable. Her CT of the abdomen and pelvis is negative for acute findings. I do not think stopping the patient's Xarelto at this time is warranted. I will attempt hormonal therapy to stop her menstrual bleeding. I will prescribe Natazia and have her follow up with her PCP. She is stable for discharge at this time. Dragon Disclaimer Dragon Disclaimer This electronic medical record was generated, in whole or in part, using a voice recognition dictation system. Departure Departure: Impression: Primary Impression: Metrorrhagia Disposition: 01 HOME, SELF-CARE Condition: STABLE Referrals: MARTÍNEZ HAYDEN (PCP) Patient Instructions: Metrorrhagia, [id number] Scripts Estradiol Valerate/Dienogest (NATAZIA 28 TABLET) 1 Each Tablet 1 TAB PO DAILY for heavy menstrual bleeding for 28 Days, #28 TAB 0 Refills Prov: LORENZA YEBOAH DO 04/21/19 LORENZA YEBOAH DO Apr 21, 2019 13:49
[2019-04-21] MEDS ORDERED: IOHEXOL 300 MG/ML 75 ML VIAL. IV ONE (14:00)
--- NOTE | 2019-04-21 14:55 | RAD ---
CT ABD PELV W/ IV CONTRST ONLY Indication: Vaginal bleeding. Exposure: One or more of the following individualized dose reduction techniques were utilized for this examination: 1. Automated exposure control 2. Adjustment of the mA and/or kV according to patient size 3. Use of iterative reconstruction technique. Technique: Intravenous contrast was given. No oral contrast per request. Comparison: None FINDINGS: Partially visualized breast implants. Lung bases are clear. Liver demonstrates a hypodense lesion measuring 17 mm in diameter and 5 Hounsfield units, most likely a cyst. Spleen is unremarkable. Pancreas is unremarkable. No evidence of adrenal mass. Scanning was performed during excretory phase. Contrast in both renal collecting systems. Tiny hypodense lesion of the left kidney, too small to characterize, may just represent a cyst. No dominant renal mass is seen. No hydronephrosis. No calcified gallstone. Aorta is nonaneurysmal. No evidence of pathologic lymph node enlargement. Postsurgical changes at the stomach. No evidence of acute colitis. No significant small bowel distention. The appendix appears unremarkable. No significant ascites. No evidence of pneumoperitoneum. Urinary bladder appears unremarkable. No evidence of pelvic mass. Endometrium measures 10 mm thickness. Vertebral body height and alignment are intact. Transitional anatomy at the lumbosacral junction. No aggressive bone destruction. IMPRESSION: 1. No acute findings in the abdomen or pelvis. 2. Small low-density liver lesion, most likely a cyst. Electronically signed by: Arnold Muñoz MD (04/21/2019 2:52 PM) [id number]
--- NOTE | 2019-04-21 15:14 | RAD ---
CHEST PA LATERAL History: Shortness of breath Comparison: 03/17/2019 2V chest x-ray exam. Findings: Frontal and lateral views of the chest were obtained. The cardiomediastinal silhouette is normal. Pulmonary vasculature is normal. The lungs are clear. No pleural effusion or pneumothorax is seen. There is no acute bone abnormality. IMPRESSION: No acute cardiopulmonary process. Electronically signed by: Jan Hernandez MD (04/21/2019 3:11 PM) [id number]
[2019-04-21 15:15] VITALS: BP 121/58
[2019-04-21] MEDS ORDERED: ESTR1TAB PO (15:47)
--- NOTE | 2019-04-21 16:51 | EKG ---
[address] [address] Test Date: 2019-04-21 Test Time: 14:58:19 Pat Name: DILIP MATIAS Department: Room: Gender: F Psych Nurse: : 1965 Requested By: LORENZA YEBOAH Order Number: [id number] Reading MD: Measurements Intervals [place] Rate: 69 P: 0 MS: 124 QRS: 45 QRSD: 76 T: 39 QT: 390 QTc: 419 Interpretive Statements SINUS RHYTHM QRS(T) CONTOUR ABNORMALITY CONSIDER ANTEROSEPTAL MYOCARDIAL DAMAGE POSSIBLY ABNORMAL ECG RI6.01 No previous ECG available for comparison
== END 2019-04-21 16:10 | disposition home or self-care (01) ==
LOC: ER 12:28
DX: N92.1 Excessive and frequent menstruation with irregular cycle (principal); R06.02 Shortness of breath; R42 Dizziness and giddiness; R55 Syncope and collapse; J44.9 Chronic obstructive pulmonary disease, unspecified; I11.0 Hypertensive heart disease with heart failure; I50.9 Heart failure, unspecified; Z90.89 Acquired absence of other organs; Z98.890 Other specified postprocedural states; Z88.0 Allergy status to penicillin
CPT/HCPCS: 36415; 71046; 74177; 80053; 84484; 85025; 93005; 96360; 96361; 99285; Q9967; J7030

== ENCOUNTER 2020-07-31 00:02 | Emergency (ER) | payer BC ==
[~2020-07-31 00:02] MED LIST changes: +ESTR1TAB PO; -LISI-338 PO; +LISI-517 PO; -PANT40TA5 PO; +PANT40TA6 PO
--- NOTE | 2020-07-31 00:18 | PHYS DOC ---
Past History Past Medical History: CHF, COPD, Hypertension, Other Additional Past Medical Histor: PE Past Surgical History: Tonsillectomy, Other Additional Past Surgical Histo: Breasts Alcohol Use: Occasionally General Adult HPI: HPI: Pt.". I just feel weird.. dizzy.. tired. cramps in my calf areas..fatigue.. . I had a bad episode before.. and was seen here and admitted for hypertension.. and after that I collapsed on plan down in [place].. and they thought I had a P E.. and I ve been on Xarelto ever since... Usually follows with Dr. Ramírez.. 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 Patient has significant history of episode accelerated hypertension and pulmonary embolism. Patient seen last in our facility on 04/20/2020 at that time patient had increased shortness of breath and decreased exercise tolerance. Patient has previous history of CHF and pulmonary edema, pulmonary embolism, dysfunctional uterine bleeding, anemia, GERD and hypertension. Patient normally follows with Dr. Ramírez. Pt. has been compliant with her Xarelto and Lasix. No recent long trips. 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 No specific ill contacts. No history of immunosuppression. No recent changes in meds. Pt. follows with [facility]. Review of Systems: Review of Systems: Constitutional: Denies fever or chills Eyes: Denies change in visual acuity HENT: Denies nasal congestion or sore throat Respiratory: Complains of shortness of breath Cardiovascular: Denies chest pain or edema GI: Denies abdominal pain, nausea, vomiting, bloody stools or diarrhea : Denies dysuria Musculoskeletal: Denies back pain or joint pain. Has complains of muscle cramps in calves Integument: Denies rash Neurologic: Denies headache, focal weakness or sensory changes. Some complaints of dizziness Endocrine: Denies polyuria or polydipsia Lymphatic: Denies swollen glands Psychiatric: Denies depression or anxiety Family History: Family History: Significant cardiac history with grandfather, grandmother, mother and father. Current Medications: Current Meds: Allergic to penicillins Allergies: Allergies: Allergies Coded Allergies Type Severity Reaction Last Updated Verified Penicillins Allergy Mild Nausea and Vomiting 03/17/19 Yes Physical Exam: PE: Constitutional: Well developed, well nourished, moderate acute distress, non- toxic appearance. [] HENT: Normocephalic, atraumatic, bilateral external ears normal, oropharynx dry no oral exudates, nose normal. [] Eyes: PERRLA, EOMI, conjunctiva normal, no discharge. [] Neck: Normal range of motion, no tenderness, supple, no stridor. [] Cardiovascular:Heart rate regular rhythm, no murmur, PMI slightly left Lungs & Thorax: Bilateral breath sounds equal apex on auscultation [] Abdomen: Bowel sounds normal, soft, no tenderness, no masses, no pulsatile masses. [] Skin: Warm, dry, no erythema, no rash. [] Back: No tenderness, no CVA tenderness. [] Extremities: No tenderness, no cyanosis, no clubbing, ROM intact, trace ankle edema. [] No cording appreciated Neurologic: Alert and oriented X 3, normal motor function, normal sensory function, no focal deficits noted. [] Psychologic: Affect anxious, judgement normal, mood normal. [] EKG: EKG: My interpretation EKG shows a sinus rhythm at 66 bpm. No acute morphology [] Radiology/Procedures: Radiology/Procedures: [][place] [address] IMAGING REPORT Signed PATIENT: DILIP MATIAS ACCOUNT: [id number] : 1965 LOCATION: ER AGE: 54 SEX: F EXAM STATUS: DEP ER ORD. PHYSICIAN: HELLEN NEGRETE MD REASON: dyspnea PROCEDURE: PORTABLE CHEST 1V Chest AP portable at 12:48 AM: Reason for examination: Dyspnea. Comparison is made to previous study dated 04/21/2019. The heart size is normal. Mediastinum is unremarkable. Lung hernandez are clear. No acute bony abnormalities are seen. Impression: No acute cardiopulmonary disease. Electronically signed by: Yoselin Pantoja MD (07/31/2020 5:42 AM) [facility] DICTATED AND SIGNED BY: YOSELIN PANTOJA MD DATE: 07/31/20 0542 CC: MARTÍNEZ HAYDEN; HELLEN NEGRETE MD ~MTH0 0 Heart Score: C/O Chest Pain: N/A HEART Score for Chest Pain: HEART Score for Chest Pain Response (Comments) Value History Slighlty/Non-Suspicious 0 Age >45 - < 65 1 Risk Factors 1 or 2 Risk Factors 1 Troponin < Normal Limit 0 Total 2 Risk Factors: Risk Factors: DM, Current or recent (<one month) smoker, HTN, HLP, family h istory of CAD, obesity. Risk Scores: Score 0 - 3: 2.5% MACE over next 6 weeks - Discharge Home Score 4 - 6: 20.3% MACE over next 6 weeks - Admit for Clinical Observation Score 7 - 10: 72.7% MACE over next 6 weeks - Early Invasive Strategies Course & Med Decision Making: Course & Med Decision Making Pertinent Labs and Imaging studies reviewed. (See chart for details) Increase fruit juice intake. Increased KCL x double lst dosage in morning. Follow up with primary. Have them review ED work up. Return if any concerns. Impression: 1. Mild Dehydration 2. Critical Hypokalemia- 2.9 3. Viral Syndrome [] Dragon Disclaimer: Dragon Disclaimer: This electronic medical record was generated, in whole or in part, using a voice recognition dictation system. Departure Departure: Referrals: MARTÍNEZ HAYDEN (PCP) Jeane Disclaimer This chart was dictated in whole or in part using Voice Recognition software in a busy, high-work load, and often noisy Emergency Department environment. It may contain unintended and wholly unrecognized errors or omissions. Dragon Disclaimer This chart was dictated in whole or in part using Voice Recognition software in a busy, high-work load, and often noisy Emergency Department environment. It may contain unintended and wholly unrecognized errors or omissions. HELLEN NEGRETE MD Jul 31, 2020 00:18
[2020-07-31] MEDS ORDERED: IV RINGERS SOLUTION,LACTATED 1,000 ML IV SCH (01:00)
[2020-07-31 01:16] LABS: BILIRUBIN,URINE NEG (NEG); CLARITY,URINE CLEAR; COLOR,URINE YELLOW; GLUCOSE,URINE NEG (NEG)
[2020-07-31 01:17] LABS: BACTERIA,URINE FEW /HPF (0-FEW); NITRITE,URINE NEG (NEG); RBC,URINE OCC /HPF (0-2); SQUAMOUS EPITHELIAL CELL,UR FEW /LPF; UROBILINOGEN,URINE 0.2 mg/dL (0.2 mg/dL); WBC,URINE OCC /HPF (0-4)
--- NOTE | 2020-07-31 01:34 | EKG ---
[address] [address] Test Date: 2020-07-31 Test Time: 01:08:11 Pat Name: DILIP MATIAS Department: Room: Gender: F Pick Up Attendant: : 1965 Requested By: HELLEN NEGRETE Order Number: [id number] Reading MD: Measurements Intervals [place] Rate: 66 P: 33 SC: 142 QRS: 45 QRSD: 82 T: 40 QT: 406 QTc: 427 Interpretive Statements SINUS RHYTHM NORMAL ECG RI6.02 No previous ECG available for comparison
[2020-07-31 02:37] LABS: BASO % 1 % (0-3); EOS # 0.2 x10^3/uL (0.0-0.7); EOS % 3 % (0-3); HEMATOCRIT 41.2 % (36.0-47.0); LYMPH # 2.3 x10^3/uL (1.0-4.8); LYMPH % 31 % (24-48); MEAN CORPUSCULAR HEMOGLOBIN 32 pg (25-35); MEAN CORPUSCULAR HGB CONC 34 g/dL (31-37); MEAN CORPUSCULAR VOLUME 93 fL (79-100); MONO # 0.6 x10^3/uL (0.0-1.1); MONO % 8 % (0-9); NEUT # 4.2 x10^3uL (1.8-7.7); NEUT % 58 % (31-73); PLATELET COUNT 293 x10^3/uL (140-400); RED BLOOD COUNT 4.42 x10^6/uL (3.50-5.40); RED CELL DISTRIBUTION WIDTH 13.3 % (11.5-14.5); WHITE BLOOD COUNT 7.3 x10^3/uL (4.0-11.0)
[2020-07-31 02:48] LABS: BARBITURATES NEG (NEG); BENZODIAZEPINES NEG (NEG); CANNABINOIDS NEG (NEG); COCAINE NEG (NEG); METHADONE NEG (NEG); OPIATES NEG (NEG); PHENCYCLIDINE NEG (NEG)
[2020-07-31 02:55] LABS: ALBUMIN 3.8 g/dL (3.4-5.0); CALCIUM 8.4 mg/dL (8.5-10.1); CREATININE 0.8 mg/dL (0.6-1.0); DIRECT BILIRUBIN 0.1 mg/dL (0.0-0.2); MAGNESIUM 2.1 mg/dL (1.8-2.4); TOTAL BILIRUBIN 0.6 mg/dL (0.2-1.0); TOTAL PROTEIN 6.6 g/dL (6.4-8.2)
[2020-07-31 02:56] LABS: AMPHETAMINE/METHAMPHETAMINE NEG (NEG)
[2020-07-31 02:59] LABS: POTASSIUM 2.9 mmol/L (3.5-5.1)
[2020-07-31] MEDS ORDERED: MAGNESIUM HYDROXIDE 2,400 MG/30 ML ORAL.SUSP. PO ONE (03:30)
[2020-07-31] MEDS ORDERED: POTASSIUM CHLORIDE 20 MEQ TABLET.ER. PO ONE (03:30)
[2020-07-31] MEDS ORDERED: IV RINGERS SOLUTION,LACTATED 1,000 ML IV ONE (03:30)
[2020-07-31] MEDS ORDERED: KETOROLAC 30 MG/ML VIAL. IVP ONE (03:30)
--- NOTE | 2020-07-31 05:45 | RAD ---
Chest AP portable at 12:48 AM: Reason for examination: Dyspnea. Comparison is made to previous study dated 04/21/2019. The heart size is normal. Mediastinum is unremarkable. Lung hernandez are clear. No acute bony abnormali ties are seen. Impression: No acute cardiopulmonary disease. Electronically signed by: Yoselin Solis MD (07/31/2020 5:42 AM) [facility]
== END 2020-07-31 04:00 | disposition home or self-care (01) ==
LOC: ER 00:02
DX: E86.0 Dehydration (principal); E87.6 Hypokalemia; B34.9 Viral infection, unspecified; I50.9 Heart failure, unspecified; J44.9 Chronic obstructive pulmonary disease, unspecified; Z88.0 Allergy status to penicillin
CPT/HCPCS: 36415; 71045; 80048; 80076; 80307; 81001; 82550; 83690; 83735; 83880; 84443; 84484; 85025; 87086; 93005; 96361; 96374; 99285; J1885; J7120